=== PATIENT | female | born 1975 | race Caucasian/White ===

== ENCOUNTER 2017-03-23 16:57 | Emergency (ER) | payer SELFPAY | END 2017-03-23 18:47 | disposition home or self-care (01) | LOC: D.ER 16:57 | DX: S01.01XA Laceration without foreign body of scalp, initial encounter (principal); V59.9XXA Occupant (driver) (passenger) of pick-up truck or van injured in unspecified traffic accident, initial encounter; Y93.89 Activity, other specified; Y92.89 Other specified places as the place of occurrence of the external cause; S20.219A Contusion of unspecified front wall of thorax, initial encounter; S16.1XXA Strain of muscle, fascia and tendon at neck level, initial encounter; S52.101A Unspecified fracture of upper end of right radius, initial encounter for closed fracture ==